=== PATIENT | female | born 1995 | race Caucasian/White ===

== ENCOUNTER 2017-12-29 06:26 | Inpatient (IN) ==
[~2017-12-29 06:26] MED LIST: ADRENALINE CHL INJ ONE; AMPICILLIN VIAL 2 GRAM ONE; D5 1/2 NS 1000 ML 1,000 ML IV ONE; D5 1/2 NS 1L W PITOCIN 20 UNITS/L 20 UNITS/1,000 ML BAG IV ONE; D5LR 1L W PITOCIN 10 UNITS/L 10 UNITS/1,000 ML BAG IV ONE; EPHEDRINE SULFATE INJ ONE; FENTANYL INJ 100 mcg ONE; LR 1000 ML IV 1,000 ML IV ONE; NAROPIN EPIDURAL 0.2% + FENTANYL 90MCG 60 ML EPI ONE; NS 100 ML IV 100 ML IV ONE; PITOCIN ONE; XYLOCAINE 1 % (PLAIN) ONE
[2017-12-29] MEDS ORDERED: PITOCIN IVP ONE (06:32)
[2017-12-29] MEDS ORDERED: D5LR 1L W PITOCIN 10 UNITS/L 10 UNITS/1,000 ML BAG IV PRN (06:32)
[2017-12-29] MEDS ORDERED: AMPICILLIN VIAL 2 GRAM 2 G in NS 100 ML IV + SPIKE MINIBAG* 100 ML IV SCH (06:32)
[2017-12-29] MEDS ORDERED: NUBAIN INJ 200 MG VIAL MULTIDOSE IVP PRN (06:32)
[2017-12-29] MEDS ORDERED: MORPHINE SULFATE INJ 2 MG INJ IVP PRN (06:32)
[2017-12-29] MEDS ORDERED: D5 1/2 NS 1000 ML 1,000 ML IV SCH (06:32)
[2017-12-29] MEDS ORDERED: REGLAN INJ 10 MG VIAL IVP PRN ×2 (06:32→11:45)
[2017-12-29] MEDS ORDERED: PHENERGAN INJ 25 MG IV PRN ×2 (06:32→09:55)
--- NOTE | 2017-12-29 07:28 | DR.OB ---
OB Quick Note - Assessment/Plan Assessment/Plan: L&D 12/29/17 at 7:00am S-No complaint. O-Afebrile,VSS EQJ=[id number] with good LTV, +accel, no decel. CTX=occ., mild CVX=3-4cm/50%/0/VTX AROM with clear fluid. IUPC and FSE placed. A-IUP at 39 0/7 weeks for induction +GBS Multiparity P-Begin pitocin induction ABX in labor for +GBS Anticipate
[2017-12-29] MEDS ORDERED: NUBAIN INJ 10 ONE (07:55)
[2017-12-29] MEDS: D5 1/2 NS 1000 ML 1,000 ML with PITOCIN 20 UNITS IV SCH ×2 (09:50)
[2017-12-29] MEDS ORDERED: MOTRIN TAB 800 MG PO PRN ×2 (09:55→12:15)
[2017-12-29] MEDS ORDERED: AMPICILLIN VIAL 1 GRAM 1 G in NS 50 ML IV + SPIKE MINIBAG* 50 ML IV SCH (10:30)
[2017-12-29] MEDS ORDERED: FENTANYL INJ 100 mcg ONE (10:56)
[2017-12-29] MEDS ORDERED: PEPCID 20 MG IV PREMIX* 20 MG/50 ML BAG IV ONE (10:56)
[2017-12-29] MEDS ORDERED: ANCEF 1 GRAM IV PREMIX* 1 G/50 ML BAG IV ONE (11:05)
--- NOTE | 2017-12-29 11:20 | DR.OB ---
OB Quick Note - Assessment/Plan Assessment/Plan: Delivery Note BRIM CUTTER 12/29/17 at 9:34am Patient complete and pushing. Head delivered over intact perineum. No nuchal cord. Compound presentation with right hand at head. Nose and mouth bulb suctioned. Body delivered over intact perineum. Cord clamped x 2 and cut. handed to attendant. Cord sent for gases. No CVX / perineal tears noted. A small carol-urethral tear noted requiring a stitch of 0-vicryl for hemostasis. Urethra intact. Placenta delivered spontaneously / intact / 3 vessel cord. Viable male , VTX/OA, wt=7'9" and 9/9, stable to NBN. Mother stable to RR. HCX=[id number].
[2017-12-29] MEDS ORDERED: PHENERGAN INJ 25 MG IVP PRN (11:45)
[2017-12-29] MEDS ORDERED: ZOFRAN INJ 4 MG VIAL IVP PRN (11:45)
[2017-12-29] MEDS ORDERED: BENADRYL INJ 50 MG VIAL IVP PRN (11:45)
[2017-12-29] MEDS ORDERED: DILAUDID INJ ONE (11:58)
[2017-12-29] MEDS: DILAUDID INJ IVP PRN ×2 (12:00→12:05)
[2017-12-29] MEDS ORDERED: MILK OF MAGNESIA PO PRN ×2 (12:15)
[2017-12-29] MEDS ORDERED: AMBIEN PO PRN ×2 (12:15)
[2017-12-29] MEDS ORDERED: DERMOPLAST SPRAY TOP PRN (12:15)
[2017-12-29] MEDS ORDERED: ADACEL or BOOSTRIX TDaP VACCINE IM ONE (12:15)
[2017-12-29] MEDS ORDERED: MYLICON TAB 80 MG CHEW PO PRN (12:15)
[2017-12-29] MEDS: PERCOCET TAB 5/325 MG PO PRN ×2 (18:50→22:33)
[2017-12-29] MEDS: ZANTAC PO SCH (20:39)
[2017-12-29] MEDS ORDERED: COLACE CAP 100 MG PO SCH (21:00)
[2017-12-30] MEDS: D5 1/2 NS 1000 ML 1,000 ML with PITOCIN 20 UNITS IV SCH ×6 (02:05→09:35)
[2017-12-30] MEDS: PERCOCET TAB 5/325 MG PO PRN (03:10)
[2017-12-30 05:10] LABS: HEMATOCRIT 28.2 % (36.0-47.0); HEMOGLOBIN 9.7 g/dL (12.0-16.0)
[2017-12-30] MEDS ORDERED: PRENATAL PLUS PO SCH (09:00)
[2017-12-30] MEDS: ZANTAC PO SCH (09:34)
[2017-12-30] MEDS ORDERED: ADACEL or BOOSTRIX TDaP VACCINE IM ONE (12:20)
[2017-12-30 12:28] VITALS: BP 119/57
[2017-12-30] MEDS ORDERED: PEPCID 20 MG IV PREMIX IV ONE (12:45)
[2017-12-30] MEDS ORDERED: BACTROBAN TOPICAL OINT TOP SCH (14:00)
[2017-12-30] MEDS ORDERED: ZOFRAN INJ 4 MG VIAL ONE (15:37)
[2017-12-30] MEDS ORDERED: REGLAN INJ 10 MG VIAL ONE (15:37)
[2017-12-30] MEDS ORDERED: XYLOCAINE 1 % (PLAIN) ONE (15:37)
[2017-12-30] MEDS ORDERED: DIPRIVAN VIAL ONE (15:37)
[2017-12-30] MEDS ORDERED: QUELICIN (OR ANECTINE) ONE (15:37)
[2017-12-30] MEDS ORDERED: LTA KIT LIDOCAINE 4% ONE (15:37)
[2017-12-30] MEDS ORDERED: SUPRANE IN ONE (15:37)
== END 2017-12-30 13:05 | disposition home or self-care (01) | DRG 766 ==
LOC: LD 06:26 → MED/SURG 12:27
PROVIDERS: ADMIT Specialist; ATTEND Specialist
DX: Z30.2 Encounter for sterilization; Z01.818 Encounter for other preprocedural examination; Z3A.39 39 weeks gestation of pregnancy; O71.82 Other specified trauma to perineum and vulva; Z37.0 Single live birth; O99.824 Streptococcus B carrier state complicating childbirth; O99.613 Diseases of the digestive system complicating pregnancy, third trimester; Z23 Encounter for immunization; B95.1 Streptococcus, group B, as the cause of diseases classified elsewhere
CPT/HCPCS: 36415; 59409; 80048; 81001; 85014; 85018; 85025; 85610; 85730; 86592; 86850; 86900; 86901; 87086; 90715; A4222; S0028; S0197; J0171; J0290; J0330; J0690; J1170; J2300; J2405; J2590; J2704; J2765; J3010; J3490; J7050; J7120; S5010